=== PATIENT | male | born 1995 | race Caucasian/White ===

== ENCOUNTER 2019-05-04 18:30 | Emergency (ER) | payer SELFPAY ==
[2019-05-04 18:43] VITALS: BP 144/78; TEMP 97.8; O2SAT 100
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
== END 2019-05-04 18:56 | disposition home or self-care (01) ==
LOC: ER 18:30
DX: S80.11XA Contusion of right lower leg, initial encounter (principal); J45.909 Unspecified asthma, uncomplicated; Z87.891 Personal history of nicotine dependence; Z88.6 Allergy status to analgesic agent; Z88.1 Allergy status to other antibiotic agents; W22.8XXA Striking against or struck by other objects, initial encounter; Y92.9 Unspecified place or not applicable